=== PATIENT | male | born 1985 | race Asian ===

== ENCOUNTER 2024-10-17 14:37 | Emergency (ER) | payer OTHER | END 2024-10-17 16:54 | disposition home or self-care (01) | LOC: DL.ED 14:37 | DX: S43.401A Unspecified sprain of right shoulder joint, initial encounter (principal); S13.9XXA Sprain of joints and ligaments of unspecified parts of neck, initial encounter; S20.211A Contusion of right front wall of thorax, initial encounter; V40.5XXA Car driver injured in collision with pedestrian or animal in traffic accident, initial encounter; Y93.89 Activity, other specified | CPT/HCPCS: 71101-RT; 72125; 73030-RT; 99283; 99284 ==

== ENCOUNTER 2024-10-29 01:12 | Emergency (ER) | payer MEDICAID, OTHER ==
[2024-10-29] MEDS ORDERED: Sodium Chloride 0.9% 10 ML Syringe FLUSH PRN (01:19)
[2024-10-29 01:58] LABS: BASOPHILS PERCENT AUTO 0.2 % (0.0-1.0); EOSINOPHILS PERCENT AUTO 2.3 % (1.0-3.0); HEMATOCRIT 44.8 % (40.0-54.0); HEMOGLOBIN 15.3 g/dL (14.0-18.0); LYMPHOCYTES PERCENT AUTO 17.3 % (20.5-50.1); MEAN CORPUSCULAR HEMOGLOBIN 32.3 pg (27.0-34.0); MEAN CORPUSCULAR HGB CONC 34.2 g/dL (33.0-35.0); MEAN CORPUSCULAR VOLUME 94.5 fL (80-100); MONOCYTES PERCENT AUTO 7.2 % (2-8); PLATELET COUNT,PLT 187 10^3/uL (150-450); RED BLOOD CELL COUNT 4.74 10^6/uL (4.6-6.2); WHITE BLOOD CELL COUNT,WBC 8.9 10^3/uL (5.0-10.0)
[2024-10-29 01:59] LABS: APPEARANCE,URINE CLEAR (CLEAR); BILIRUBIN,URINE NEGATIVE (NEGATIVE); COLOR,URINE DARK YELLOW (YELLOW); GLUCOSE,URINE NEGATIVE (NEGATIVE); KETONES,URINE NEGATIVE (NEGATIVE); LEUKOCYTE ESTERASE,URINE TRACE (NEGATIVE); NITRITE,URINE NEGATIVE (NEGATIVE); OCCULT BLOOD,URINE NEGATIVE (NEGATIVE); PROTEIN,URINE TRACE (NEGATIVE); UROBILINOGEN,URINE 0.2 mg/dL (0.2-1.0)
[2024-10-29] MEDS ORDERED: Sodium Chloride 0.9% 1,000 ML IV ONE (02:07)
[2024-10-29 02:08] LABS: LACTIC ACID 0.7 mmol/L (0.4-2.0)
[2024-10-29 02:09] LABS: WBC,URINE 40-50 /HPF (0-5/HPF)
[2024-10-29 02:10] LABS: BACTERIA,URINE FEW /HPF (0-FEW/HPF); EPITHELIAL CELLS,URINE MODERATE /HPF (NOT SEEN); MUCUS,URINE MODERATE /LPF (NOT SEEN); RBC,URINE 0-5 /HPF (0-5)
[2024-10-29 02:14] LABS: ALBUMIN 3.8 g/dL (3.4-5.0); ANION GAP 12.1 mEq/L (7-13); BILIRUBIN TOTAL 0.5 mg/dL (0.2-1.0); BUN/CREATININE RATIO 12.1 (No establ ref range); CALCIUM 9.4 mg/dL (8.5-10.1); CREATININE 1.24 mg/dL (0.70-1.30); EST CRCL DRUG DOSING (CG) 92.07 mL/min; POTASSIUM,K 4.1 mmol/L (3.5-5.1); PROTEIN TOTAL,TP 7.5 g/dL (6.4-8.2)
[2024-10-29] MEDS ORDERED: Ketorolac 30 MG/ML SDV ONE (02:31)
[2024-10-29 05:37] LABS: AMPHETAMINES,URINE NEGATIVE (NEGATIVE); BARBITURATES,URINE POSITIVE (NEGATIVE); BENZODIAZEPINE,URINE POSITIVE (NEGATIVE); MDMA (ECSTASY), URINE NEGATIVE (NEGATIVE); METHADONE,URINE NEGATIVE (NEGATIVE); METHAMPHETAMINES,URINE NEGATIVE (NEGATIVE); OPIATES,URINE NEGATIVE (NEGATIVE); OXYCODONE,URINE NEGATIVE (NEGATIVE); PHENCYCLIDINE,URINE NEGATIVE (NEGATIVE); TCA,URINE NEGATIVE (NEGATIVE)
== END 2024-10-29 05:26 | disposition home or self-care (01) ==
LOC: DL.ED 01:12 → EDBD 01:12 → DL.ED 05:26
DX: R74.8 Abnormal levels of other serum enzymes (principal); N23 Unspecified renal colic; I10 Essential (primary) hypertension; F17.210 Nicotine dependence, cigarettes, uncomplicated
CPT/HCPCS: 36415; 71111; 72070; 80053; 80305-QW; 81001; 82550; 83605; 85025; 87040; 87086; 96361; 96374; 99284; 99284-25

== ENCOUNTER 2025-06-16 11:36 | Emergency (ER) | payer MEDICAID | END 2025-06-16 12:14 | disposition home or self-care (01) | LOC: DL.ED 11:36 | DX: L98.429 Non-pressure chronic ulcer of back with unspecified severity (principal) | CPT/HCPCS: 99282; 99283; A9270 ==